=== PATIENT | female | born 1995 ===

== ENCOUNTER 2017-07-23 19:33 | Emergency (ER) | payer SELFPAY ==
[2017-07-23 21:25] LABS: HCG,QUALITATIVE URINE NEGATIVE (NEGATIVE)
[2017-07-23 21:39] LABS: SQUAMOUS EPITHIAL 2 /hpf (0-5); URINE BACTERIA MOD (<OCC); URINE BILIRUBIN NEGATIVE (NEGATIVE); URINE BLOOD 2+ (NEGATIVE); URINE CLARITY Clear (Clear); URINE COLOR Yellow (YELLOW); URINE GLUCOSE (UA) NORMAL (Normal); URINE LEUKOCYTE ESTERASE TRACE Leu/uL (Negative); URINE NITRATE POSITIVE (NEGATIVE); URINE PROTEIN 1+ mg/dL (NEGATIVE); URINE UROBILINOGEN NORMAL mg/dL (0.2-1.0)
--- NOTE | 2017-07-23 22:28 | C.PDOC ---
History Of Present Illness 22 years old female presents to ED with c/o intermittent suprapubic pain that began 3 days ago. She states pain feels like pressure and is associated with lose stools since yesterday. Denies dysuria, hematuria, foul odor urine, vaginal discharge or bleeding. Patients LMP was 3 weeks ago. Time Seen by Provider: 07/23/17 21:12 Chief Complaint (Nursing): Abdominal Pain History Per: Patient History/Exam Limitations: no limitations Onset/Duration Of Symptoms: Days (3) Current Symptoms Are (Timing): Still Present Associated Symptoms: denies: Fever, Chills, Nausea, Vomiting Exacerbating Factors: None Alleviating Factors: None Recent travel outside of the [place]: No Abnormal Vaginal Bleeding: No Past Medical History Reviewed: Historical Data, Nursing Documentation, Vital Signs Vital Signs: Last Vital Signs Temp 98.4 F 07/23/17 22:34 Pulse 82 07/23/17 22:34 Resp 18 07/23/17 22:34 BP 124/82 07/23/17 22:34 Pulse Ox 98 07/24/17 00:05 - Medical History PMH: No Chronic Diseases Surgical History: No Surg Hx Family History: States: No Known Family Hx - Social History Hx Alcohol Use: No Hx Substance Use: No Review Of Systems Constitutional: Negative for: Fever, Chills Cardiovascular: Negative for: Chest Pain Gastrointestinal: Positive for: Other (suprapubic pain). Negative for: Nausea, Vomiting Genitourinary: Negative for: Dysuria, Hematuria, Vaginal Discharge, Vaginal Bleeding Skin: Negative for: Rash Neurological: Negative for: Weakness, Numbness Physical Exam - Physical Exam Appears: Well, Non-toxic, Other (Awake and alert) Skin: Warm, Dry Head: Normacephalic Eye(s): bilateral: Normal Inspection Oral Mucosa: Moist Chest: Symmetrical, No Tenderness Cardiovascular: Rhythm Regular Respiratory: No Rales, No Rhonchi, No Wheezing Gastrointestinal/Abdominal: Soft, Tenderness (suprapubic bilaterally), No Guarding, No Rebound Pelvic: No Vaginal Bleeding, No Vaginal Discharge, No Cervical Motion Tenderness Neurological/Psych: Oriented x3, Normal Speech, Normal Cognition ED Course And Treatment O2 Sat by Pulse Oximetry: 98 (Room air) Pulse Ox Interpretation: Normal Progress Note: Administered Motrin and Macrobid. Ordered Urinalysis and urine cultures. Urinalysis: Positive for UTI. Patient given instructions on treatment , says she feels better and stable for discharge. Disposition Counseled Patient/Family Regarding: Diagnosis, Need For Followup, Rx Given - Disposition Disposition: HOME/ ROUTINE Disposition Time: 22:22 Condition: STABLE Additional Instructions: Please follow up with PMD Increase PO fluids Return to ER if worse Prescriptions: Ibuprofen [Motrin] 600 mg PO Q6H #30 tab Nitrofurantoin Macrocrystals [Macrobid] 1 cap PO BID #14 cap Instructions: Urinary Tract Infection in Women (ED) Forms: [employer] (Persian) - Clinical Impression Clinical Impression: UTI (urinary tract infection) - PA / C[employer]IER AND SALESPERSON / Resident Statement MD/DO has reviewed & agrees with the documentation as recorded. - Scribe Statement The provider has reviewed the documentation as recorded by the Nisa Valenzuela All medical record entries made by the Nisa were at my direction and personally dictated by me. I have reviewed the chart and agree that the record accurately reflects my personal performance of the history, physical exam, medical decision making, and the department course for this patient. I have also personally directed, reviewed, and agree with the discharge instructions and disposition.
[2017-07-23 22:35] VITALS: BP 124/82; PULSE 82; RESP 18; TEMP 98.4
[2017-07-23 23:59] VITALS: O2SAT 98
== END 2017-07-23 23:01 | disposition home or self-care (01) ==
LOC: C.ER 19:33
DX: N39.0 Urinary tract infection, site not specified (principal)